=== PATIENT | female | born 1935 | race Caucasian/White ===

== ENCOUNTER 2017-06-22 09:58 | Emergency (ER) | payer MEDICAID, MEDICARE ==
[~2017-06-22] VITALS: Ht 154.9 cm; Wt 76.8 kg
[2017-06-22] MEDS ORDERED: ISOS30TAB (10:15)
[2017-06-22] MEDS ORDERED: ASPI325T PO (10:15)
[2017-06-22] MEDS ORDERED: IBUP-1022 PO (10:15)
[2017-06-22] MEDS ORDERED: IRON65TA PO (10:15)
[2017-06-22] MEDS ORDERED: CALC500T36 PO (10:15)
[2017-06-22] MEDS ORDERED: LISINOP/HCTZ (10:15)
[2017-06-22] MEDS ORDERED: SIMV20TA2 (10:15)
[2017-06-22] MEDS ORDERED: SITA50TAB PO (10:15)
--- NOTE | 2017-06-22 11:34 | REP ---
RIGHT ANKLE COMPLETE: 06/22/2017 COMPARISON: Right tibia-fibula and foot series this date. CLINICAL HISTORY: Trauma. Four views show prominent swelling about the anterolateral aspect of the ankle and hind foot. Mortise joint appears grossly symmetric and preserved. There is smoothly marginated ossific density inferior to the medial malleolus. There are tiny ossific densities on the lateral view anterior to the tibial plafond and talus and on oblique view, there are tiny ossific densities suggesting avulsions off the lateral aspect anterior talus. Small avulsions off the distal tip of the fibula also suggested. This suggests ligamentous avulsion injury. There is a plantar heel spur without an Achilles spur. The subtalar joints intact. Talonavicular, calcaneocuboid joints unremarkable. Tarsal bones visible are intact. I do not see acute fracture of the proximal metatarsals. IMPRESSION: 1. Prominent soft tissue swelling of the anterolateral aspect of the ankle with tiny avulsions off the talus and inferior aspect of the lateral malleolus suggesting ligamentous avulsion. 2. Tiny old avulsion off the medial malleolus with the mortise joint intact. 3. Plantar calcaneal spur. Degenerative changes. Tarsal bones without acute fracture. Mortise joint preserved. Signed by Hood Nam MD 06/22/2017 08:32 P
--- NOTE | 2017-06-22 11:36 | REP ---
RIGHT FOOT COMPLETE: 06/22/2017 CLINICAL HISTORY: Trauma. Comparison is the right ankle this date. Prominent plantar calcaneal spur noted. Subtalar joints intact. Small ossific avulsion of the distal tip of the medial malleolus and presumed new avulsion off the lateral malleolar tip. Talonavicular calcaneal cuboid joints preserved. Tiny calcific densities anterior to the ankle margin noted. The anterior process of the talus showed small ossific avulsions on the ankle series but obscured on this examination. Tarsal bones and their articulations show no definite acute fractures. The proximal metatarsals show degenerative changes without definite acute fracture. MTP and IP joints show degenerative changes. IMPRESSION: 1. Prominent soft tissue swelling ankle and hindfoot, tiny avulsion off the distal tip of the lateral malleolus likely acute, old avulsion off the distal tip medial malleolus, better seen on the ankle series. No other significant or acute bony finding. Signed by Hood Nam MD 06/22/2017 08:32 P
[2017-06-22 12:09] VITALS: BP 166/70
--- NOTE | 2017-06-22 23:15 | REP ---
RIGHT TIBIA-FIBULA: 06/22/2017. Clinical history: Trauma. Comparison: No prior study. Findings: The two views show the proximal two-thirds of the tibia and fibula as well as the knee in part. There is a knee arthroplasty with the components visible well aligned in relationship to the council bone and each other. I do not see a visible acute fracture of the tibia or fibula. There are some vascular calcifications evident. Impression: 1. Prior knee arthroplasty with visible tibia and fibula without fracture or focal lesion. Signed by Hood Nam MD 06/23/2017 08:24 A
--- NOTE | 2017-06-26 13:09 | ED PDOC ---
Post-Departure Follow-Up janeth johnson and bernadette faxed formal report of right foot film for fu Cherelle Hunt MD Jun 26, 2017 13:09
== END 2017-06-22 12:12 | disposition home or self-care (01) ==
LOC: M ED 09:58
DX: S93.401A Sprain of unspecified ligament of right ankle, initial encounter (principal); X50.9XXA Other and unspecified overexertion or strenuous movements or postures, initial encounter; Y92.89 Other specified places as the place of occurrence of the external cause; Y93.89 Activity, other specified; Y99.8 Other external cause status; I10 Essential (primary) hypertension; E11.9 Type 2 diabetes mellitus without complications; E78.00 Pure hypercholesterolemia, unspecified; D50.9 Iron deficiency anemia, unspecified; Z79.899 Other long term (current) drug therapy; Z79.82 Long term (current) use of aspirin; Z79.84 Long term (current) use of oral hypoglycemic drugs; Z88.5 Allergy status to narcotic agent; E73.9 Lactose intolerance, unspecified; Z87.891 Personal history of nicotine dependence

== ENCOUNTER → 2017-10-27 | Outpatient (CLI) | payer MEDICARE ==
[~2017-10-27] MED LIST: GASTROGRAFIN SOLUTION 30ML (Q9963) As Ordered; ISOVUE-370 76% 100ML VIAL (Q9967) As Ordered
== END ==
LOC: M RAD 12:35
DX: R11.10 Vomiting, unspecified (principal); R63.0 Anorexia; R63.4 Abnormal weight loss
CPT/HCPCS: Q9963

== ENCOUNTER 2017-12-02 13:14 | Inpatient (IN) | payer MEDICARE ==
[2017-12-02] MEDS: METOPROLOL TART 25 MG TABLET PO ×2 (14:17→20:09)
[2017-12-02] MEDS: NS 500 ML IV ×2 (14:19→16:15)
[2017-12-02] MEDS: METOPROLOL 5 MG/5 ML VIAL IV ×3 (14:19→15:46)
[2017-12-02 14:28] LABS: BASO % 0.2 % (0.0-1.0); EOS % 0.1 % (0.0-3.0); HEMATOCRIT 36.6 % (36.0-47.0); LYMPH % 8.8 % (24.0-44.0); MEAN CORPUSCULAR HEMOGLOBIN 29.6 pg (27.0-33.0); MEAN CORPUSCULAR HGB CONC 32.8 g/dl (32.0-36.5); MEAN CORPUSCULAR VOLUME 90.4 fl (80.0-96.0); MONO # 0.9 10^3/uL (0.0-0.8); MONO % 8.7 % (0.0-5.0); NEUTROPHILS # 8.8 10^3/uL (1.8-7.7); NEUTROPHILS % 81.2 % (36.0-66.0); PLATELET COUNT, AUTOMATED 161 10^3/uL (150-450); RED BLOOD COUNT 4.05 10^6/uL (4.00-5.40); RED CELL DISTRIBUTION WIDTH 13.9 % (11.5-14.5); WHITE BLOOD COUNT 10.9 10^3/uL (4.0-10.0)
[2017-12-02 14:35] LABS: VENOUS HCO3 24.4 MEQ/L (23.0-27.0); VENOUS O2 SATURATION 93.2 % (60.0-80.0); VENOUS PARTIAL PRESSURE CO2 43.5 mmHg (38.0-50.0); VENOUS PARTIAL PRESSURE O2 70.2 mmHg (30.0-50.0); VENOUS PH 7.367 UNITS (7.330-7.430); VENOUS STANDARD HCO3 23.5 MEQ/L; VENOUS TOTAL CO2 25.7 MEQ/L (24.0-28.0)
[2017-12-02] MEDS: NS 1,000 ML IV (14:52)
[2017-12-02 15:07] LABS: AMMONIA < 10 uMOL/L (<32)
[2017-12-02 15:09] LABS: ALBUMIN 3.7 GM/DL (3.2-5.2); ALBUMIN/GLOBULIN RATIO 1.03 (1.00-1.93); ALKALINE PHOSPHATASE 70 U/L (45-117); ALT/SGPT 19 U/L (12-78); ANION GAP 10 MEQ/L (8-16); AST/SGOT 18 U/L (7-37); BILIRUBIN,DIRECT 0.2 MG/DL (0.0-0.2); BILIRUBIN,TOTAL 0.6 MG/DL (0.2-1.0); BLOOD UREA NITROGEN 21 MG/DL (7-18); CALCIUM LEVEL 9.2 MG/DL (8.8-10.2); CARBON DIOXIDE LEVEL 24 MEQ/L (21-32); CHLORIDE LEVEL 107 MEQ/L (98-107); CPK CREATINE PHOSPHOKINASE 151 U/L (26-192); CREATININE FOR GFR 1.17 MG/DL (0.55-1.30); GLOMERULAR FILTRATION RATE 47.4 (>32); GLUCOSE, FASTING 148 MG/DL (70-100); POTASSIUM SERUM 4.5 MEQ/L (3.5-5.1); SODIUM LEVEL 141 MEQ/L (136-145); TOTAL PROTEIN 7.3 GM/DL (6.4-8.2); TROPONIN I 0.04 NG/ML (< 0.10)
[2017-12-02 15:32] LABS: CK-MB VALUE MASS 2.4 NG/ML (<3.6); MAGNESIUM LEVEL 1.8 MG/DL (1.8-2.4); MB/CK RELATIVE INDEX 1.58 (< OR =4)
[2017-12-02] MEDS ORDERED: ISOVUE-370 76% 100ML VIAL (Q9967) As Ordered (16:08)
[2017-12-02 18:21] LABS: INR 1.16; PARTIAL THROMBOPLASTIN TIME 28.1 SECONDS (26.8-37.9)
[2017-12-02] MEDS ORDERED: ACETAMINOPHEN TAB 650MG DOSE (2X325MG) PO (18:30)
[2017-12-02] MEDS ORDERED: ONDANSETRON 4MG/2ML VIAL (J2405) IV (18:30)
[2017-12-02 18:40] LABS: NT-PRO BNP 5877 PG/ML (<450)
[2017-12-02 18:51] LABS: BEDSIDE GLUCOSE 164 MG/DL (83-110)
[2017-12-02] MEDS: cefTRIAXone SOD 1 GM in D5W MINI-BAG PLUS 50 ML IV (20:08)
[2017-12-02] MEDS: ENOXAPARIN 80 MG/0.8 ML SYRINGE (J1650) SC (20:09)
[2017-12-02 23:34] LABS: KETONE, URINE AUTO RFX NEGATIVE (NEGATIVE); MUCUS, URINE RFX SMALL (NEGATIVE); NITRITE, URINE AUTO RFX NEGATIVE (NEGATIVE); RBC, URINE AUTO RFX 12 /HPF (0-3); SQUAM EPITHELIAL CELL UR AURFX 9 /HPF (0-6)
[2017-12-02 23:35] LABS: LEUKOCYTE ESTERASE UR AUTO RFX 1+ (NEGATIVE); SPECIFIC GRAVITY UR AUTO RFX >1.060 (1.002-1.035); WBC, URINE AUTO RFX 13 /HPF (0-3)
[2017-12-03] MEDS: METOPROLOL TART 25 MG TABLET PO ×2 (00:46→06:00)
[2017-12-03 04:18] LABS: HEMATOCRIT 32.1 % (36.0-47.0); HEMOGLOBIN 10.5 g/dl (12.0-15.5); MEAN CORPUSCULAR HEMOGLOBIN 29.5 pg (27.0-33.0); MEAN CORPUSCULAR HGB CONC 32.7 g/dl (32.0-36.5); MEAN CORPUSCULAR VOLUME 90.2 fl (80.0-96.0); PLATELET COUNT, AUTOMATED 147 10^3/uL (150-450); RED BLOOD COUNT 3.56 10^6/uL (4.00-5.40); RED CELL DISTRIBUTION WIDTH 13.9 % (11.5-14.5); WHITE BLOOD COUNT 7.9 10^3/uL (4.0-10.0)
[2017-12-03 04:36] LABS: ANION GAP 7 MEQ/L (8-16); BLOOD UREA NITROGEN 19 MG/DL (7-18); CALCIUM LEVEL 8.2 MG/DL (8.8-10.2); CARBON DIOXIDE LEVEL 24 MEQ/L (21-32); CHLORIDE LEVEL 111 MEQ/L (98-107); CREATININE FOR GFR 0.79 MG/DL (0.55-1.30); GLOMERULAR FILTRATION RATE > 60.0 (>32); GLUCOSE, FASTING 100 MG/DL (70-100); MAGNESIUM LEVEL 1.7 MG/DL (1.8-2.4); SODIUM LEVEL 142 MEQ/L (136-145)
[2017-12-03] MEDS: DIGOXIN INJ 0.5 MG/2 ML AMP (J1160) IV ×3 (08:34→20:11)
[2017-12-03] MEDS: ENOXAPARIN 80 MG/0.8 ML SYRINGE (J1650) SC ×2 (08:35→20:12)
[2017-12-03] MEDS: MAG SULF 1GM/100ML (MAG RUN) 1 GM in APPROPRIATE DILUENT 1 EA IV (08:35)
[2017-12-03] MEDS: MULTIVITAMINS/MINERALS THERAP 1 TAB PO (08:35)
[2017-12-03] MEDS: NYSTATIN 100,000 UNITS/GM TOPICAL PWD 15 GM TOP ×2 (09:00→20:12)
[2017-12-03] MEDS: cefTRIAXone SOD 1 GM in D5W MINI-BAG PLUS 50 ML IV (20:12)
[2017-12-04 05:19] LABS: HEMATOCRIT 33.7 % (36.0-47.0); HEMOGLOBIN 11.1 g/dl (12.0-15.5); MEAN CORPUSCULAR HEMOGLOBIN 30.1 pg (27.0-33.0); MEAN CORPUSCULAR HGB CONC 32.9 g/dl (32.0-36.5); MEAN CORPUSCULAR VOLUME 91.3 fl (80.0-96.0); PLATELET COUNT, AUTOMATED 160 10^3/uL (150-450); RED BLOOD COUNT 3.69 10^6/uL (4.00-5.40); RED CELL DISTRIBUTION WIDTH 13.8 % (11.5-14.5); WHITE BLOOD COUNT 8.3 10^3/uL (4.0-10.0)
[2017-12-04 05:49] LABS: ANION GAP 8 MEQ/L (8-16); BLOOD UREA NITROGEN 16 MG/DL (7-18); CALCIUM LEVEL 8.3 MG/DL (8.8-10.2); CARBON DIOXIDE LEVEL 25 MEQ/L (21-32); CHLORIDE LEVEL 110 MEQ/L (98-107); CREATININE FOR GFR 0.82 MG/DL (0.55-1.30); GLOMERULAR FILTRATION RATE > 60.0 (>32); GLUCOSE, FASTING 96 MG/DL (70-100); MAGNESIUM LEVEL 1.9 MG/DL (1.8-2.4); POTASSIUM SERUM 3.8 MEQ/L (3.5-5.1); SODIUM LEVEL 143 MEQ/L (136-145)
[2017-12-04] MEDS: METOPROLOL 5 MG/5 ML VIAL IV ×2 (06:30→13:23)
[2017-12-04] MEDS: ATENOLOL 12.5MG PER 1/2 TABLET PO ×2 (09:00→20:10)
[2017-12-04] MEDS: MULTIVITAMINS/MINERALS THERAP 1 TAB PO (10:07)
[2017-12-04] MEDS: NYSTATIN 100,000 UNITS/GM TOPICAL PWD 15 GM TOP ×2 (10:08→20:11)
[2017-12-04] MEDS: ENOXAPARIN 80 MG/0.8 ML SYRINGE (J1650) SC ×2 (10:08→20:11)
[2017-12-04] MEDS: SLF 3 ML SYR IV ×3 (13:24→21:33)
[2017-12-05 05:36] LABS: HEMATOCRIT 35.1 % (36.0-47.0); HEMOGLOBIN 11.4 g/dl (12.0-15.5); MEAN CORPUSCULAR HEMOGLOBIN 29.6 pg (27.0-33.0); MEAN CORPUSCULAR HGB CONC 32.5 g/dl (32.0-36.5); MEAN CORPUSCULAR VOLUME 91.2 fl (80.0-96.0); PLATELET COUNT, AUTOMATED 191 10^3/uL (150-450); RED BLOOD COUNT 3.85 10^6/uL (4.00-5.40); RED CELL DISTRIBUTION WIDTH 13.7 % (11.5-14.5)
[2017-12-05] MEDS: SLF 3 ML SYR IV ×4 (06:00→22:00)
[2017-12-05 06:37] LABS: ANION GAP 7 MEQ/L (8-16); BLOOD UREA NITROGEN 11 MG/DL (7-18); CALCIUM LEVEL 8.1 MG/DL (8.8-10.2); CARBON DIOXIDE LEVEL 26 MEQ/L (21-32); CHLORIDE LEVEL 110 MEQ/L (98-107); DIGOXIN LEVEL 0.7 NG/ML (0.5-2.0); GLOMERULAR FILTRATION RATE > 60.0 (>32); GLUCOSE, FASTING 96 MG/DL (70-100); MAGNESIUM LEVEL 1.8 MG/DL (1.8-2.4); POTASSIUM SERUM 4.2 MEQ/L (3.5-5.1); SODIUM LEVEL 143 MEQ/L (136-145)
[2017-12-05] MEDS: MULTIVITAMINS/MINERALS THERAP 1 TAB PO (07:44)
[2017-12-05] MEDS: NYSTATIN 100,000 UNITS/GM TOPICAL PWD 15 GM TOP ×2 (07:44→20:22)
[2017-12-05] MEDS: ATENOLOL 12.5MG PER 1/2 TABLET PO ×2 (07:45→20:20)
[2017-12-05] MEDS: ENOXAPARIN 80 MG/0.8 ML SYRINGE (J1650) SC ×2 (07:45→20:22)
[2017-12-06 05:58] LABS: HEMATOCRIT 33.5 % (36.0-47.0); MEAN CORPUSCULAR HEMOGLOBIN 29.6 pg (27.0-33.0); MEAN CORPUSCULAR HGB CONC 32.8 g/dl (32.0-36.5); MEAN CORPUSCULAR VOLUME 90.1 fl (80.0-96.0); PLATELET COUNT, AUTOMATED 210 10^3/uL (150-450); RED BLOOD COUNT 3.72 10^6/uL (4.00-5.40); RED CELL DISTRIBUTION WIDTH 13.9 % (11.5-14.5)
[2017-12-06] MEDS: SLF 3 ML SYR IV ×3 (06:00→20:04)
[2017-12-06 06:09] LABS: ANION GAP 6 MEQ/L (8-16); BLOOD UREA NITROGEN 12 MG/DL (7-18); CALCIUM LEVEL 8.6 MG/DL (8.8-10.2); CARBON DIOXIDE LEVEL 27 MEQ/L (21-32); CHLORIDE LEVEL 108 MEQ/L (98-107); CREATININE FOR GFR 0.66 MG/DL (0.55-1.30); GLOMERULAR FILTRATION RATE > 60.0 (>32); GLUCOSE, FASTING 105 MG/DL (70-100); MAGNESIUM LEVEL 1.8 MG/DL (1.8-2.4); POTASSIUM SERUM 4.1 MEQ/L (3.5-5.1); SODIUM LEVEL 141 MEQ/L (136-145)
[2017-12-06 06:33] LABS: DIGOXIN LEVEL 0.6 NG/ML (0.5-2.0)
[2017-12-06] MEDS: DIGOXIN 0.25 MG TAB PO ×2 (07:39→08:31)
[2017-12-06] MEDS: ENOXAPARIN 80 MG/0.8 ML SYRINGE (J1650) SC ×2 (07:39→20:03)
[2017-12-06] MEDS: NYSTATIN 100,000 UNITS/GM TOPICAL PWD 15 GM TOP ×2 (08:30→20:03)
[2017-12-06] MEDS: MULTIVITAMINS/MINERALS THERAP 1 TAB PO (08:31)
[2017-12-06] MEDS: ATENOLOL 12.5MG PER 1/2 TABLET PO ×2 (08:31→20:02)
[2017-12-06 10:13] LABS: DRVV SCREEN 53.9 SEC
[2017-12-06 10:22] LABS: PTT LUPUS TYPE ANTICOAG SCREEN 1.3 (0-1.2)
[2017-12-06 10:29] LABS: DRVV CONFIRM 42.7 SEC; LUPUS CONFIRM RATIO 1.1
[2017-12-06 10:30] LABS: NORMALIZED RATIO 1.18 (0.00-1.20)
[2017-12-07] MEDS: SLF 3 ML SYR IV ×2 (05:44→11:36)
[2017-12-07 06:13] LABS: HEMATOCRIT 33.1 % (36.0-47.0); HEMOGLOBIN 10.9 g/dl (12.0-15.5); MEAN CORPUSCULAR HEMOGLOBIN 29.9 pg (27.0-33.0); MEAN CORPUSCULAR HGB CONC 32.9 g/dl (32.0-36.5); MEAN CORPUSCULAR VOLUME 90.7 fl (80.0-96.0); PLATELET COUNT, AUTOMATED 214 10^3/uL (150-450); RED BLOOD COUNT 3.65 10^6/uL (4.00-5.40); RED CELL DISTRIBUTION WIDTH 13.7 % (11.5-14.5); WHITE BLOOD COUNT 6.7 10^3/uL (4.0-10.0)
[2017-12-07 06:38] LABS: ANION GAP 7 MEQ/L (8-16); BLOOD UREA NITROGEN 14 MG/DL (7-18); CALCIUM LEVEL 8.1 MG/DL (8.8-10.2); CARBON DIOXIDE LEVEL 26 MEQ/L (21-32); CHLORIDE LEVEL 109 MEQ/L (98-107); CREATININE FOR GFR 0.65 MG/DL (0.55-1.30); GLOMERULAR FILTRATION RATE > 60.0 (>32); GLUCOSE, FASTING 86 MG/DL (70-100); MAGNESIUM LEVEL 1.8 MG/DL (1.8-2.4); POTASSIUM SERUM 3.9 MEQ/L (3.5-5.1); SODIUM LEVEL 142 MEQ/L (136-145)
[2017-12-07] MEDS: ENOXAPARIN 80 MG/0.8 ML SYRINGE (J1650) SC (08:48)
[2017-12-07] MEDS: MULTIVITAMINS/MINERALS THERAP 1 TAB PO (08:48)
[2017-12-07] MEDS: RAMIPRIL 1.25 MG CAP PO (08:48)
[2017-12-07] MEDS: NYSTATIN 100,000 UNITS/GM TOPICAL PWD 15 GM TOP (08:48)
[2017-12-07] MEDS: DIGOXIN 0.25 MG TAB PO (08:49)
[2017-12-07] MEDS: ATENOLOL 12.5MG PER 1/2 TABLET PO (08:49)
[2017-12-09 00:08] LABS: PHOSPHOLIPIDS LEVEL 217 mg/dL (150-250)
[2017-12-09 00:08] LABS: ANTI THROMBIN 3 ANTIGEN IMMUNO 93 % (72-124); ANTI THROMBIN 3 FUNCT ACTIVITY 120 % (75-135); CARDIOLIPIN IGA ANTIBODY 9 APL U/mL (0-11); CARDIOLIPIN IGG ANTIBODY <9 GPL U/mL (0-14); CARDIOLIPIN IGM ANTIBODY <9 MPL U/mL (0-12); PROTEIN C FUNCTIONAL ACTIVITY 135 % (73-180); PROTEIN S FUNCTIONAL ACTIVITY 92 % (63-140)
== END 2017-12-07 13:35 | DRG 308 ==
LOC: M ED 13:14 → M ED INP 18:23 → M PCU 22:50
DX: I48.2 Chronic atrial fibrillation (principal); I26.99 Other pulmonary embolism without acute cor pulmonale; I82.432 Acute embolism and thrombosis of left popliteal vein; I50.22 Chronic systolic (congestive) heart failure; I11.0 Hypertensive heart disease with heart failure; I25.5 Ischemic cardiomyopathy; R62.7 Adult failure to thrive; E11.9 Type 2 diabetes mellitus without complications; Z79.899 Other long term (current) drug therapy; Z88.5 Allergy status to narcotic agent; Z88.8 Allergy status to other drugs, medicaments and biological substances

== ENCOUNTER → 2017-12-09 | Outpatient (REF) ==
[2017-12-09 09:26] LABS: DIGOXIN LEVEL 1.1 NG/ML (0.5-2.0)
== END ==
LOC: SKLAB7 07:00
DX: I48.91 Unspecified atrial fibrillation (principal)

== ENCOUNTER → 2017-12-13 | Outpatient (REF) ==
[2017-12-13 09:23] LABS: HEMATOCRIT 34.5 % (36.0-47.0); HEMOGLOBIN 11.5 g/dl (12.0-15.5); MEAN CORPUSCULAR HEMOGLOBIN 29.9 pg (27.0-33.0); MEAN CORPUSCULAR HGB CONC 33.3 g/dl (32.0-36.5); MEAN CORPUSCULAR VOLUME 89.8 fl (80.0-96.0); PLATELET COUNT, AUTOMATED 303 10^3/uL (150-450); RED BLOOD COUNT 3.84 10^6/uL (4.00-5.40); RED CELL DISTRIBUTION WIDTH 14.4 % (11.5-14.5); WHITE BLOOD COUNT 9.9 10^3/uL (4.0-10.0)
[2017-12-13 09:48] LABS: ALBUMIN 3.1 GM/DL (3.2-5.2); ANION GAP 11 MEQ/L (8-16); BLOOD UREA NITROGEN 21 MG/DL (7-18); CALCIUM LEVEL 8.5 MG/DL (8.8-10.2); CARBON DIOXIDE LEVEL 22 MEQ/L (21-32); CHLORIDE LEVEL 106 MEQ/L (98-107); CREATININE FOR GFR 0.86 MG/DL (0.55-1.30); GLOMERULAR FILTRATION RATE > 60.0 (>32); GLUCOSE, FASTING 149 MG/DL (70-100); PHOSPHORUS LEVEL 3.7 MG/DL (2.5-4.9); POTASSIUM SERUM 4.4 MEQ/L (3.5-5.1); SODIUM LEVEL 139 MEQ/L (136-145)
== END ==
LOC: SKLAB7 08:30
DX: I50.9 Heart failure, unspecified (principal); R41.0 Disorientation, unspecified; R53.83 Other fatigue

== ENCOUNTER → 2017-12-23 | Outpatient (REF) | payer MEDICARE ==
[2017-12-23 10:23] LABS: ANION GAP 6 MEQ/L (8-16); BLOOD UREA NITROGEN 18 MG/DL (7-18); CALCIUM LEVEL 8.9 MG/DL (8.8-10.2); CARBON DIOXIDE LEVEL 27 MEQ/L (21-32); CHLORIDE LEVEL 106 MEQ/L (98-107); CREATININE FOR GFR 0.72 MG/DL (0.55-1.30); GLOMERULAR FILTRATION RATE > 60.0 (>32); GLUCOSE, FASTING 133 MG/DL (70-100); POTASSIUM SERUM 4.6 MEQ/L (3.5-5.1); SODIUM LEVEL 139 MEQ/L (136-145)
[2017-12-25 09:20] LABS: TOTAL 25(OH) VITAMIN D 16.8 NG/ML (30.0-100.0)
== END ==
LOC: SKLAB7 07:00
DX: R53.83 Other fatigue (principal)
CPT/HCPCS: 82306

== ENCOUNTER → 2017-12-25 | Outpatient (CLI) | payer MEDICARE | LOC: M RAD 11:12 | DX: R93.1 Abnormal findings on diagnostic imaging of heart and coronary circulation (principal); R53.1 Weakness ==

== ENCOUNTER → 2017-12-25 | Outpatient (REF) | payer MEDICARE | LOC: SKLAB7 08:43 | DX: I48.91 Unspecified atrial fibrillation (principal) | CPT/HCPCS: 93005 ==

== ENCOUNTER → 2017-12-25 | Outpatient (CLI) | payer MEDICARE ==
[~2017-12-25] MED LIST changes: +PROHANCE 279.3MG/ML 15ML VIAL (A9576) As Ordered
== END ==
LOC: M RAD 17:07
DX: D49.6 Neoplasm of unspecified behavior of brain (principal); I48.91 Unspecified atrial fibrillation; R93.1 Abnormal findings on diagnostic imaging of heart and coronary circulation; R53.1 Weakness; Z96.653 Presence of artificial knee joint, bilateral
CPT/HCPCS: A9576

== ENCOUNTER → 2017-12-26 | Outpatient (CLI) | payer MEDICARE | LOC: M LAB 08:20 | DX: R93.8 Abnormal findings on diagnostic imaging of other specified body structures (principal) | CPT/HCPCS: 74178; Q9963 ==